=== PATIENT | female | born 2000 | race Caucasian/White ===

== ENCOUNTER 2022-09-20 15:59 | Outpatient (REF) | payer OTHER, SELFPAY ==
[2022-09-20 20:54] LABS: Gamma Glutamyl Transpeptidase* 13 U/L (8-55)
[2022-09-20 21:12] LABS: Free T4 Free Thyroxine* 0.96 ng/dL (0.70-1.85); Vitamin D 25 Hydroxy* 29 ng/mL (30-80)
[2022-09-20 21:45] LABS: Vitamin B12* 356 pg/mL (243-894)
[2022-09-22 16:31] LABS: Homocysteine, Total 10 umol/L (0-15)
[2022-09-22 16:40] LABS: Ceruloplasmin 20 mg/dL (16-45); Free T3 3.1 pg/mL (2.5-4.3)
[2022-09-22 17:24] LABS: TPO Antibody 1.2 IU/mL (0.0-9.0); Thyroglobulin Antibody <0.9 IU/mL (0.0-4.0)
[2022-09-23 00:54] LABS: Tissue Transglut Ab IgA <2 U/mL (0-3)
[2022-09-23 07:59] LABS: Copper, Serum/Plasma 91.3 ug/dL (80.0-155.0); Zinc, Serum/Plasma 77.7 ug/dL (60.0-120.0)
[2022-09-23 16:48] LABS: Tissue Transglutaminase Ab IgG 2 U/mL (0-5)
[2022-09-24 04:38] LABS: Folate, RBC 742 ng/mL (>=366); Hematocrit (client supplied) 35.2 %
[2022-09-24 23:05] LABS: T3, Ratio (T3:RT3) 5.4 (4.2-11.0); T3, Total - LC-MS/MS 70 ng/dL (80-200)
[2022-09-25 02:06] LABS: B burgdorferi AbTotal by ELISA 0.37 LIV (0.00-1.20)
[2022-09-28 14:28] LABS: MMA Vitamin B12 Status 0.16 umol/L (0.00-0.40)
== END 2022-09-20 16:00 | disposition home or self-care (01) ==
LOC: LAB 15:59
DX: G40.909 Epilepsy, unspecified, not intractable, without status epilepticus (principal); R68.89 Other general symptoms and signs; R53.82 Chronic fatigue, unspecified; N94.3 Premenstrual tension syndrome; K90.41 Non-celiac gluten sensitivity; Z77.120 Contact with and (suspected) exposure to mold (toxic)
CPT/HCPCS: 36415; 82175; 82306; 82390; 82525; 82542; 82607; 82747; 82977; 83090; 83516; 83655; 83735; 83825; 83921; 84252; 84439; 84443; 84480; 84481; 84482; 84630; 86160; 86364; 86376; 86666; 86800; 87476